=== PATIENT | female | born 1980 | race Caucasian/White ===

== ENCOUNTER 2018-10-09 20:48 | Emergency (ER) | payer BC ==
--- NOTE | 2018-10-09 21:28 | EDPHY ---
H & P Stated Complaint: L ankle surg, intermittent fevers at home, "feeling bad" Time Seen by Provider: 10/09/18 21:00 HPI/ROS: Chief Complaint: Fever HPI: 37-year-old woman who is 15 days status post right ankle surgery is presenting with intermittent fevers for the last 3 days. She has not been having any increasing pain redness or discharge from her incision. She did bump her leg couple of days ago but was wearing her orthopedic boot at that time. No streaking up her leg. No calf pain. No chest pain shortness of breath. No cough. No sore throat. She has had some general fatigue but otherwise no other symptoms. She is presenting with concerns about possible infection at her surgery site. ROS: 10 systems were reviewed and were negative except those elements noted in the HPI. PMH: Denies Social History: No smoking, no alcohol, no recreational drug use Family History: non-contributory Physical Exam: Gen: Awake, Alert, No Distress HEENT: Nose: no rhinorrhea Eyes: PERRLA, EOMI Mouth: Moist mucosa Neck: Supple, no JVD Chest: nontender, lungs clear to auscultation Heart: S1, S2 normal, no murmur Abd: Soft, non-tender, no guarding Back: no CVA tenderness, no midline tenderness Ext: no edema, non-tender, right ankle incision is intact clean and dry and there is minimal tenderness there is no erythema, there is no discharge Skin: no rash Neuro: CN II-XII intact, Sensation grossly intact, Strength 5/5 in bilateral upper and lower extremities - Personal History LMP (Females 10-55): Now Current Tetanus Diphtheria and Acellular Pertussis (TDAP): Yes - Medical/Surgical History Hx Asthma: No Hx Chronic Respiratory Disease: No Hx Diabetes: No Hx Cardiac Disease: No Hx Renal Disease: No Hx Cirrhosis: No Hx Alcoholism: No Hx HIV/AIDS: No Hx Splenectomy or Spleen Trauma: No Other PMH: L ankle surg - Social History Smoking Status: Never smoked Constitutional: Initial Vital Signs Temperature (C) 37.0 C 10/09/18 20:53 Heart Rate 88 10/09/18 20:53 Respiratory Rate 16 10/09/18 20:53 Blood Pressure 133/101 H 10/09/18 20:53 O2 Sat (%) 97 10/09/18 20:53 O2 Delivery Mode Room Air Allergies/Adverse Reactions: amoxicillin Allergy (Verified 10/09/18 20:55) Penicillins Allergy (Verified 10/09/18 20:55) Medical Decision Making ED Course/Re-evaluation: 37-year-old woman presenting with fevers. She is status post ankle surgery 15 days ago. Surgical site looks excellent. She has no white count and no left shift. She is afebrile here. I do not believe her surgery site is the source of her infection. I will refer her to Orthopedics for follow-up and primary care. Return for any concerns. - Data Points Laboratory Results: Laboratory Results 10/09/18 21:26 10/09/18 21:26 10/09/18 10/09/18 21:26 21:26 WBC 8.09 10^3/uL 10^3/uL (3.80-9.50) RBC 4.96 10^6/uL 10^6/uL (4.18-5.33) Hgb 14.4 g/dL g/dL (12.6-16.3) Hct 41.0 % % (38.0-47.0) MCV 82.7 fL fL (81.5-99.8) MCH 29.0 pg pg (27.9-34.1) MCHC 35.1 g/dL g/dL (32.4-36.7) RDW 12.3 % % (11.5-15.2) Plt Count 333 10^3/uL 10^3/uL (150-400) MPV 9.4 fL fL (8.7-11.7) Neut % (Auto) 52.8 % % (39.3-74.2) Lymph % (Auto) 30.8 % % (15.0-45.0) Pershing % (Auto) 12.0 % % (4.5-13.0) Eos % (Auto) 2.8 % % (0.6-7.6) Baso % (Auto) 1.4 % % (0.3-1.7) Nucleat RBC Rel Count 0.0 % % (0.0-0.2) Absolute Neuts (auto) 4.27 10^3/uL 10^3/uL (1.70-6.50) Absolute Lymphs (auto) 2.49 10^3/uL 10^3/uL (1.00-3.00) Absolute Monos (auto) 0.97 10^3/uL H 10^3/uL (0.30-0.80) Absolute Eos (auto) 0.23 10^3/uL 10^3/uL (0.03-0.40) Absolute Basos (auto) 0.11 10^3/uL H 10^3/uL (0.02-0.10) Absolute Nucleated RBC 0.00 10^3/uL 10^3/uL (0-0.01) Immature Gran % 0.2 % % (0.0-1.1) Immature Gran # 0.02 10^3/uL 10^3/uL (0.00-0.10) Sodium 136 mEq/L mEq/L (135-145) Potassium 4.2 mEq/L mEq/L (3.5-5.2) Chloride 103 mEq/L mEq/L (97-110) Carbon Dioxide 23 mEq/l mEq/l (22-31) Anion Gap 10 mEq/L mEq/L (6-14) BUN 13 mg/dL mg/dL (7-23) Creatinine 0.7 mg/dL mg/dL (0.6-1.0) Estimated GFR > 60 Glucose 119 mg/dL H mg/dL (70-100) Calcium 10.0 mg/dL mg/dL (8.5-10.4) Departure - Departure Disposition: Home, Routine, Self-Care Clinical Impression: Fever Condition: Good Instructions: Fever in Adults (ED) Additional Instructions: Alternate acetaminophen (1000 mg) with ibuprofen (400 mg) every 4 hours as needed for fevers, chills, aches or pain. Follow up with orthopedic surgeon in 2-3 days for any concerns. Follow up with primary care physician if her symptoms have not improved in 2-3 days. Referrals: Giancarlo Beltran MD [Medical Doctor] - As per Instructions Quinn Mcclain MD [Medical Doctor] - As per Instructions
[2018-10-09 21:34] LABS: PLATELET COUNT 333 10^3/uL (150-400)
[2018-10-09 22:17] VITALS: BP 120/65
== END 2018-10-09 22:17 | disposition home or self-care (01) ==
DX: R50.9 Fever, unspecified (principal)